=== PATIENT | female | born 1975 | race Caucasian/White ===

== ENCOUNTER 2021-10-18 19:23 | Emergency (ER) | payer BC, OTHER, SELFPAY ==
[2021-10-18 19:33] VITALS: BP 109/68; PULSE 85; RESP 16; TEMP 37.2; O2SAT 100
--- NOTE | 2021-10-18 19:45 | ED.URI ---
HPI - URI/Sore Throat General Chief Complaint: Upper Respiratory Infection Stated Complaint: uri Time Seen by Provider: 10/18/21 19:45 Source: patient Mode of arrival: ambulatory Limitations: no limitations History of Present Illness HPI Narrative: 46-year-old female presents with complaint of off-and-on nasal congestion, runny nose, postnasal drainage for the past 2 months. States that she takes a daily antihistamine with as Astelin spray and Sudafed as needed. Has a history of sinus surgery. States that she began feeling sick 2 days ago with increase nasal congestion, sinus pressure, low-grade fever, sore throat. Denies nausea vomiting diarrhea. No chest pain or shortness of breath. All systems reviewed and negative except as noted above. Related Data Allergies Allergy/AdvReac Type Severity Reaction Status Date / Time dimetapp AdvReac Unknown Hyperactive Uncoded 10/18/21 19:28 Review of Systems Review of Systems: CONSTITUTIONAL: Reports fever. Denies chills, or sweats. EYES: Denies visual changes, redness, or discharge. ENT: Reports rhinorrhea, congestion, sore throat. Denies otalgia. CARDIOVASCULAR: Denies chest pain, palpitations, or edema. RESPIRATORY: Denies cough or dyspnea. GASTROINTESTINAL: Denies abdominal pain, nausea, vomiting, or diarrhea. GENITOURINARY: Denies dysuria or hematuria. SKIN: Denies rash or itching. MUSCULOSKELETAL: Denies back pain, joint pain, or myalgia. NEUROLOGIC: Denies headache, numbness, or weakness. PSYCHIATRIC: Denies anxiety or depression. All other systems reviewed are negative, except as documented in HPI. 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 There is no relevant family history pertinent to the presenting complaint. Exam Narrative: GENERAL: This is a well-nourished, well-developed patient, in no apparent distress. HEAD: normocephalic, atraumatic. EYES: PERRL. Sclera clear/white. Vision is grossly intact. EARS: External ears normal, auditory canals clear and without drainage, fluid to bilateral TMs without erythema. NOSE: External nose normal with clear nasal drainage, mild congestion, bilateral maxillary sinus tenderness. THROAT: Mucous membranes moist, clear postnasal drainage. NECK: Neck supple, non-tender without lymphadenopathy, masses or thyromegaly. CARDIOVASCULAR: Regular rate and rhythm without murmurs, gallops, or rubs. RESPIRATORY: Clear to auscultation. Breath sounds equal bilaterally. No wheezes, rales, or rhonchi. SKIN: warm, Dry, intact with no suspicious lesions or rash, good texture and turgor. NEURO: awake, alert, and oriented to person, place and time. There were no obvious focal neurologic abnormalities. EXTREMITIES: Normal range of motion to all extremities. Course Course Level of Care: Express Care Visit Vital Signs Vital signs: Vital Signs Temperature 37.2 C 10/18/21 19:33 Pulse Rate 85 10/18/21 19:33 Respiratory Rate 16 10/18/21 19:33 Blood Pressure 109/68 10/18/21 19:33 Pulse Oximetry 100 10/18/21 19:33 Oxygen Delivery Room Air 10/18/21 19:33 Temperature 37.2 C 10/18/21 19:33 Pulse Rate 85 10/18/21 19:33 Respiratory Rate 16 10/18/21 19:33 Blood Pressure 109/68 10/18/21 19:33 Pulse Oximetry 100 05
== END 2021-10-18 20:15 | disposition home or self-care (01) ==
PROVIDERS: Emergency Provider Nurse Practitioner Family
DX: J01.90 Acute sinusitis, unspecified (principal); B96.89 Other specified bacterial agents as the cause of diseases classified elsewhere; Z20.822 Contact with and (suspected) exposure to COVID-19
CPT/HCPCS: 87081; 87426; 87880; 99213; C9803; G0463

== ENCOUNTER 2022-03-23 08:00 | Outpatient (RCR) | payer BC, OTHER, SELFPAY ==
--- NOTE | 2022-02-22 10:16 | PTOPEVAL1 ---
Assessment and note entered by Vikas Saldaña, PT, DPT Evaluation Information Assessment Status Evaluation Diagnosis suzanne hip pain Subjective Information Pt states she has had suzanne hip pain for close to a year. She states her L hip is almost completely better and her R hip is starting to bother her now . Her pain has improved after taking medication. She states prior, after a jog she would be nearly unable to walk for 24 hours after a run, then it would start to get better after that. She states this week she jogged 2 nights in a row and is just a bit sore today. Reported Pain Level Pain Score 1,0: Self Report Assessment PT Clinical Summary Ava is an active 47 y/o female who presents to therapy today for her initial evaluation with a diagnosis of L hip pain. Today she demonstrates excellent hip ROM, good strength, with no tenderness to palpation. Pt is a toe strike runner without a stretching warmup or cool down program. Skilled physical therapy services are indicated to address core and hip stability, to teach home stretching program, to evaluate her running mechanics, and to return to baseline function. Plan of Care Interventions Gait Training,Manual Therapy,Neuro Re-education, Patient/Caregiver Educati,Therapeutic Activities, Therapeutic Exercise PT Services Indicated Yes Treatment Frequency and 1x/wk for 4 wks Duration These treatments will address the objective and functional deficits as defined above. The patient will be advanced safely and appropriately in order for the patient to progress towards his/her prior level of function. Additional exercises will be introduced and as well as a comprehensive home exercise program upon discharge, if needed, ?to ensure carryover of functional gains achieved in the clinic. This treatment plan has been reviewed and agreement upon by the patient.
--- NOTE | 2022-03-23 08:53 | PTOPDC ---
Assessment and note entered by Vikas Saldaña, PT, DPT Evaluation Information Assessment Status Discharge Diagnosis suzanne hip pain Subjective Information Pt states her hip is doing better, she states she has some days where she has no pain at all. Sometimes she still has a little bit of pain during and after her runs, but not like before. She states her running distance is not limited d/t pain and her recovery time is much shorter. Reported Pain Level Pain Score 0,0: Self Report Assessment PT Clinical Summary Ava presents to therapy today for her progress report following 4 visits of skilled therapy to treat her diagnosis of L hip pain. Today she demonstrates excellent strength and ROM of her BLE . She demonstrates good body mechanics with running, transfers, and functional lifts. She reports excellent compliance with her HEP and has met or progressed towards all of her therapy goals . Plan of Care PT Services Indicated No Treatment Frequency and to be discharged Duration
== END 2022-03-28 09:44 | disposition home or self-care (01) ==
LOC: ANHGOSHPT 08:00
PROVIDERS: Visit Provider Orthopaedic Surgery
DX: M25.552 Pain in left hip (principal)
CPT/HCPCS: 97035; 97110; 97112; 97140; 97161

== ENCOUNTER 2023-08-30 15:01 | Emergency (ER) | payer BC, OTHER, SELFPAY ==
[2023-08-30 15:16] VITALS: BP 113/73; PULSE 69; RESP 16; TEMP 36.8; O2SAT 99
--- NOTE | 2023-08-30 15:52 | ED.URI ---
HPI - URI/Sore Throat General Chief Complaint: Upper Respiratory Infection Stated Complaint: not feeling well Time Seen by Provider: 08/30/23 15:52 Source: patient Mode of arrival: ambulatory Limitations: no limitations History of Present Illness HPI Narrative: 48-year-old female presents with complaint of fatigue, nasal congestion, sinus pressure, postnasal drainage , itchy eyes for 3 days. Afebrile. Denies body aches and chills. No coughing. Using Flonase nasal spray and Afrin to treat congestion. Not taking any other [id number] medications to treat her symptoms. Patient does have an ENT. [place] that this is something different than her sinuses and wanted COVID and flu testing. All systems reviewed and negative except as noted above. Related Data Home Medications Medication Instructions Recorded Confirmed azelastine 137 mcg-fluticasone 50 1 spray intranasal BID 08/30/23 08/30/23 mcg/spray nasal spray Allergies Allergy/AdvReac Type Severity Reaction Status Date / Time brompheniramine AdvReac Intermediate Hyperactive Verified 08/30/23 15:52 [From Dimetapp (brompheniramine-PPA)] phenylpropanolamine AdvReac Intermediate Hyperactive Verified 08/30/23 15:52 [From Dimetapp (brompheniramine-PPA)] Review of Systems Review of Systems: CONSTITUTIONAL: Denies fever, chills, or sweats. reports fatigue. EYES: Denies visual changes, redness, or discharge. ENT: Reports rhinorrhea, congestion, postnasal drainage. Denies sore throat, or otalgia. CARDIOVASCULAR: Denies chest pain, palpitations, or edema. RESPIRATORY: Denies cough or dyspnea. GASTROINTESTINAL: Denies abdominal pain, nausea, vomiting, or diarrhea. GENITOURINARY: Denies dysuria or hematuria. SKIN: Denies rash or itching. MUSCULOSKELETAL: Denies back pain, joint pain, or myalgia. NEUROLOGIC: Denies headache, numbness, or weakness. PSYCHIATRIC: Denies anxiety or depression. All other systems reviewed are negative, except as documented in HPI. 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 There is no relevant family history pertinent to the presenting complaint. Exam Narrative: GENERAL: This is a well-nourished, well-developed patient, in no apparent distress. HEAD: normocephalic, atraumatic. EYES: PERRL. Sclera clear/white. Vision is grossly intact. EARS: External ears normal, auditory canals clear and without drainage, TMs normal without perforation. Hearing grossly intact. NOSE: External nose normal with Clear nasal drainage, mild erythema without swelling to bilateral nares. THROAT: Mucous membranes moist, Erythema with postnasal drainage. NECK: Neck supple, non-tender without lymphadenopathy, masses or thyromegaly. CARDIOVASCULAR: Regular rate and rhythm without murmurs, gallops, or rubs. RESPIRATORY: Clear to auscultation. Breath sounds equal bilaterally. No wheezes, rales, or rhonchi. SKIN: warm, Dry, intact with no suspicious lesions or rash, good texture and turgor. NEURO: awake, alert, and oriented to person, place and time. There were no obvious focal neurologic abnormalities. EXTREMITIES: No joint tenderness, effusion, or edema noted.
== END 2023-08-30 16:05 | disposition home or self-care (01) ==
PROVIDERS: Emergency Provider Nurse Practitioner Family
DX: J01.90 Acute sinusitis, unspecified (principal); Z20.822 Contact with and (suspected) exposure to COVID-19; M41.9 Scoliosis, unspecified
CPT/HCPCS: 87081; 87426; 87804; 87880; 99213; G0463

== ENCOUNTER 2024-07-09 11:28 | Emergency (ER) | payer OTHER, SELFPAY ==
[2024-07-09 11:42] VITALS: BP 116/52; PULSE 64; RESP 16; TEMP 36.6; O2SAT 99
--- NOTE | 2024-07-09 11:45 | ED.URI ---
HPI - URI/Sore Throat General Chief Complaint: Upper Respiratory Infection Stated Complaint: congestion, sore throat Time Seen by Provider: 07/09/24 11:45 Source: patient, RN notes reviewed and old records reviewed Mode of arrival: ambulatory Limitations: no limitations History of Present Illness HPI Narrative: Patient presents with complaints of congestion and sore throat since yesterday. She reports that her was ill with similar symptoms. Recovered on his own. She has been taking Lena-Dwight for her symptoms, has not notice much difference. She is not in any distress. She is able to manage own secretions, no drooling or stridor Related Data Home Medications ?Medication ?Instructions ?Recorded ?Confirmed ?Last Taken ?Type No Home Medications 07/09/24 07/09/24 Unknown History Allergies Allergy/AdvReac Type Severity Reaction Status Date / Time brompheniramine (From AdvReac Intermediate Hyperactive Verified 07/09/24 11:51 Dimetapp (brompheniramine-PPA)) phenylpropanolamine (From AdvReac Intermediate Hyperactive Verified 07/09/24 11:51 Dimetapp (brompheniramine-PPA)) Review of Systems Review of Systems: All systems reviewed & are unremarkable except as noted in HPI and below Constitutional: Constitutional: Reports no additional constitutional complaints and Reports headache(s) ENT: Reports system reviewed and no additional complaints, except as documented, Reports nasal congestion, Reports nasal discharge and Reports sore throat Cardiovascular: Cardiovascular: Reports no additional cardiovascular complaints Respiratory: Respiratory: Reports no additional respiratory complaints Gastrointestinal: Gastrointestinal: Reports no additional gastrointestinal complaints [facility] Past Medical History Medical History Fractures Left arm Scoliosis of thoracolumbar spine Surgical History Surgical History Tubal ligation status Family History Family History Father Malignant neoplasm of prostate Cerebrovascular accident Social History Social History Smoking status: Never smoker Living arrangements: with family Occupation/Education: occupation 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 There is no relevant family history pertinent to the patient complaint. Exam Const: General: cooperative, no acute distress, alert and awake Orientation/consciousness: oriented to person, oriented to place and oriented to time HENMT: Head: normal to inspection Ears: TM's normal bilaterally Mouth: Yes moist mucous membranes Throat: posterior oropharynx normal Resp: Effort & Inspection: normal respiratory effort and able to speak in complete sentences Auscultation: clear to auscultation bilaterally, no crackles, no rales, no rhonchi and no wheezes Cardio: Palpation: normal PMI Rate: regular rate Rhythm: regular rhythm Heart sounds: S1 normal heart sound present and S2 normal heart sound present Neuro: General: oriented to person, oriented to place and oriented to time Cranial nerves: Yes CN's II-XII intact bilaterally Psych: Appearance: grossly normal Thought process: Normal thought process present Insight: Good insight present (Psych) Judgement: Good judgement present (Psych) Course Course Level of Care: Express Care Visit Vital Signs Vital signs: Vital Signs Temperature 97.8 F 07/09/24 11:42 Pulse Rate 64 07/09/24 11:42 Respiratory Rate 16 07/09/24 11:42 Blood Pressure 116/52 L 07/09/24 11:42 Pulse Oximetry 99 07/09/24 11:42 Oxygen Delivery Room Air 07/09/24 11:42 Temperature 97.8 F 07/09/24 11:42 Pulse Rate 64 07/09/24 11:42 Respiratory Rate 16 07/09/24 11:42 Blood Pressure 116/52 L 07/09/24 11:42 Pulse Oximetry 99 07/09/24 11:42 Oxygen Delivery Room Air 07/09/24 11:42 Reviewed MDM - URI/Sore Throat MDM Narrative Medical decision making narrative: Negative COVID, negative flu, negative strep. Culture pending. Supportive care measures discussed. Symptoms likely viral in origin Discharge instructions reviewed with patient, as well as provided in writing per nursing staff. The instructions also include specific and strict return/GO TO THE ER as well as f/u information. All questions have been answered, and the patient deny any further questions with discharge and discharge plan. Some parts of this dictation were generated by voice recognition software and may contain typographical and/or grammatical inaccuracies. Differential Diagnosis Differential diagnosis: Likely upper respiratory infection, otitis media, viral infection and influenza Medical Records Attestation: I reviewed the patient's medical records. Lab Data Attestation: I reviewed the patient's lab results. Discharge Plan Discharge Clinical Impression: Upper respiratory infection Qualifiers: URI type: unspecified viral URI Qualified Code(s): J06.9 - Acute upper respiratory infection, unspecified Patient Disposition: Home, Self-Care Condition: Stable Instructions: Antibiotic Form, Cold Symptoms (ED) Additional Instructions: Follow-up with primary care provider. Emergency department for new or worsening symptoms Patient Language: [place] Prescriptions: No Action No Home Medications Follow-up/Referrals: PHYSICIAN NOT ON STAFF,NONSTAFF [Primary Care Provider] -
[2024-07-09 12:18] LABS: EDCOVIDSCREEN Negative (Negative); EDINFLUASCREEN Negative (Negative); EDINFLUBSCREEN Negative (Negative)
[2024-07-09 12:19] LABS: EDSTREPNEGPOS1 Negative (Negative)
== END 2024-07-09 12:18 | disposition home or self-care (01) ==
PROVIDERS: Emergency Provider Nurse Practitioner Family
DX: J06.9 Acute upper respiratory infection, unspecified (principal); Z20.822 Contact with and (suspected) exposure to COVID-19
CPT/HCPCS: 87081; 87426; 87804; 87880; 99213; G0463